=== PATIENT | female | born 1950 | race Caucasian/White ===

== ENCOUNTER 2017-08-09 12:42 | Observation (INO) | payer BC, SELFPAY ==
[2017-08-09] VITALS (9 sets, daily range): BP systolic 157–192; BP diastolic 79–95; PULSE 65–75; RESP 9–19; TEMP 36.1–36.7; O2SAT 98–100; BMI 30.2; BMI 30.4
--- NOTE | 2017-08-09 12:55 | EKG12_ITS ---
Test Reason : DIZZINESS Blood Pressure : / mmHG Vent. Rate : 065 BPM Atrial Rate : 065 BPM P-R Int : 164 ms QRS Dur : 170 ms QT Int : 520 ms P-R-T Axes : 069 068 020 degrees QTc Int : 540 ms Sinus rhythm with frequent Premature ventricular complexes Right bundle branch block Abnormal ECG Confirmed by KARINA PATINO ([id number]), commercial production editor GABRIELLA RYDER ([id number] on 08/22/2017 5:55:40 PM Referred By: KATELYN Confirmed By:KARINA PATINO
--- NOTE | 2017-08-09 12:55 | CT_ITS ---
STUDY: CT BRAIN WITHOUT CONTRAST REASON FOR EXAM: Female, 66 years old. Dizziness. Sudden onset of vomiting. RADIATION DOSAGE (If Supplied By Facility): CTDIvol = ( 44.99 ) mGy, DLP = ( 829.85 ) mGycm TECHNIQUE: Transaxial CT imaging of the brain was performed without administration of intravenous contrast material. Individualized dose optimization techniques were used for this CT. COMPARISON: None. FINDINGS: Normal soft tissue structures. Normal calvarium. Normal size ventricles and extra-axial spaces for the patient's age. Normal white matter tracts of the cerebral hemispheres. Normal basal ganglia and thalami. Normal brainstem. Normal cerebellum. There is no intracranial hemorrhage. There are no findings of an acute ischemic infarction. Atherosclerotic calcification of the cavernous portions of the internal carotid arteries bilaterally. Mucosal thickening of the inferior aspects of both maxillary sinuses. CT/Brain/Head without Contrast IMPRESSION: Mucosal thickening of the maxillary sinuses. No acute intracranial abnormality is seen. Electronically Signed: Javier Amaro MD at 13:43 EDT Tel [phone], Service support ,
--- NOTE | 2017-08-09 12:59 | PCA ---
NO OLD EKG IN MUSE
--- NOTE | 2017-08-09 13:02 | ED.DCSUM_ITS ---
- ER Visit Summary Date of Service: 08/09/17 Chief Complaint: Vertigo History of Present Illness: The patient is a 66 F presenting with sudden onset of vertigo. She states this is worse if she turns her head or stands. She began to have nausea and vomiting associated with this. She denies chest pain or shortness of breath. She has a history of this remotely in the past. She denies headache. Denies numbness or weakness. Denies other complaints. Physical Examination: Vitals are stable. Patient is afebrile. Alert no acute distress. HEENT exam is unremarkable. Neck is supple. Lungs are clear and equal bilaterally. Heart is regular rate and rhythm. Abdomen is soft nontender nondistended. Extremities are unremarkable. Skin is warm and dry. No focal neurologic deficit. Remainder of exam is unremarkable. Emergency Department Course and Treatment: Patient given IV fluids, Zofran, Valium. EKG is sinus rate is 65 with right bundle branch block. CBC, chemistries unremarkable other than potassium 3.0, glucose 179, BUN 19. Troponin is negative. CT head shows no acute process. Patient continues to have vertigo and was given meclizine with no improvement. Will discuss with the hospitalist for observation. Disposition: Observation Impression: Intractable vertigo This note was generated with [employer] dictation software. It may contain incorrect words, spelling, and punctuation that were not noted in review of the chart prior to signing ED Disposition - Plan for ED Patient: Chief Complaint: Dizziness Referrals: NOT,DEFINED [NON-STAFF] -
[2017-08-09] MEDS: 0.9% Normal Saline 1,000 ML 1000 ML IV (13:07)
[2017-08-09] MEDS: Ondansetron 4 MG/2 ML Vial IV ×2 (13:07→23:35)
[2017-08-09] MEDS: diazePAM 5 MG Tablet PO (13:16)
[2017-08-09 13:25] LABS: Absolute Lymphocyte Count 1.98 X10^3/ul (0.83-4.51); Absolute Neutrophil Count 4.7 X10^3/uL (2.0-7.7); Basophil# 0.04 X10^3/uL; Basophil% 0.5 % (0-1); Eosinophil# 0.15 X10^3/uL; Eosinophils% 1.9 % (0-5); Hematocrit 42.5 % (37-47); Hemoglobin 14.5 g/dl (12.0-15.0); Lymphocyte # 1.98 X10^3/ul (4.0); Lymphocyte % 25.7 % (19-41); Mean Corp Hgb Conc 34.1 g/gl (32-36); Mean Corpuscular Volume 87.8 fL (81-99); Mean Platelet Vol. 9.7 fl (6.2-12.0); Monocyte# 0.78 X10^3/uL; Monocyte% 10.1 % (0-10); Neutrophil # 4.73 X10^3/uL (2.7-7.7); Neutrophil % 61.4 % (47-70); Platelet Count 289 K/mm3 (150-450); RBC Distribution Width CV 13.5 % (11.6-14.6); RBC Distribution Width SD 43.3 fl (35.1-43.9); Red Blood Count 4.84 M/mm3 (4.2-5.4); White Blood Count 7.7 K/mm3 (4.4-11.0)
[2017-08-09 13:26] LABS: POSITIVE COUNT NO; POSITIVE DIFFERENTIAL NO; POSITIVE MORPHOLOGY NO
[2017-08-09 13:31] LABS: Anion Gap 15 (5-15); BUN 19 mg/dL (7-18); Calcium,Total 8.8 mg/dL (8.5-10.1); Chloride 108 mmol/L (98-107); Creatinine, Serum 0.95 mg/dL (0.55-1.02); EST Glomerular Filtration Rate 63 mL/min (>60); Est Glom Filt Rate - Afr Amer 76 mL/min (>60); Estimated Creatinine Clearance 45.14 ml/min; Glucose 179 mg/dL (74-106); Sodium Level 143 mmol/L (136-145)
--- NOTE | 2017-08-09 14:15 | ED.RN ---
pt UNABLE TO GET UNDRESSED D/T VERTIGO. SHE HAS NO WIRES OR METAL ON.
[2017-08-09] MEDS: Meclizine HCl 25 MG Tablet PO ×2 (14:35→18:42)
--- NOTE | 2017-08-09 16:18 | PCM.HP.STD ---
Problem List (1) Hypokalemia Status: Acute (2) Vertigo Status: Acute (3) Hypothyroidism Status: Chronic History of Present Illness Date of Admission: 08/09/17 Chief Complaint: Dizziness. The patient is a 66 year old F with past medical history as mentioned above presented to the emergency room because of dizziness. Her symptoms started this morning around 11 AM when she was walking with dizziness, described as spinning sensation and about to fall, persistent, associated with persistent nausea and vomiting, worsening upon eye opening, somewhat relieved when she closes her eyes. She has been throwing up since her symptoms started. She denied headache, vision change, facial numbness or tingling. Denied focal arm or leg weakness. Denied ear pain, ear discharge or change in her hearing. Denies fever chills. Denied chest pain or shortness of breath. In the emergency department, her blood pressure was elevated, other vital signs were stable. Her routine blood work is remarkable for potassium of 3 and blood sugar of 179. Her EKG revealed normal sinus rhythm with right bundle branch block, no acute ischemic changes and no old EKG to compare. Troponin is negative. CT scan brain showed no acute infarction or hemorrhage. She received IV Valium ?2, oral Antivert ?1 as well as IV fluids and antiemetics in the emergency room without significant improvement. She is being admitted for intractable vertigo as well as hypokalemia and elevated blood pressure. Past Medical History Past Medical History (Chronic Problems): Chronic Problems Hypothyroidism (Chronic) Allergies Penicillins [PCN] Allergy (Verified 08/09/17 13:15) Hives Home Medications: Ambulatory Orders Medication Instructions Recorded Levothyroxine Sodium [Synthroid] 150 mcg PO DAILY 08/09/17 Surgical History: hysterectomy, tonsillectomy, - - Thyroidectomy. 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 Lives: Spouse/ Significant Other Smoking Status: Never smoker Alcohol: None Drugs: None - *Family History Maternal History Items: No pertinent history Paternal History Items: No pertinent history Review of Systems Constitutional: Denies: Anorexia, Chills, Fever, Weakness Eyes: Denies: Blurred vision, Double vision, Drainage, Redness HEENT: Denies: Difficulty Hearing, Ear Pain, Eye Pain, Nasal Congestion, Sore Throat Cardiovascular: Denies: Chest Pain, Chest Pressure, Chest Tightness, Heaviness, Palpitations, Syncope Respiratory: Denies: Cough, Pleuritic Pain, Shortness of Breath, Sputum production, Wheezing Gastrointestinal: Reports: Nausea, Vomiting. Denies: Abdominal Pain, Constipation, Diarrhea Genitourinary: Denies: Dysuria, Frequency, Hematuria Musculoskeletal: Denies: Arm Pain, Back Pain, Foot Pain Skin: Denies: Dryness, Rash Neurological: Denies: Balance problems, Change in Speech, Slurred speech, Headaches, Numbness Psychiatric: Denies: Anxiety, Depression Endocrine: Denies: Change in Body Habitus, Polydipsia VTE Information - Inpt Only VTE Present on Admission: No VTE Mechan Device Prophylaxis: None VTE Pharm Prophylaxis ordered?: Yes Patient Problems: Active and Suspected Problems Hypokalemia (Acute) Vertigo (Acute) - Physical Exam General: Alert, Oriented x3, Cooperative, No apparent distress HEENT: Atraumatic, PERRLA, EOMI Oral: Moist Mucosa, No Gingival or Mucosal Lesions/ Ulcerations Neck: Supple, No JVD, Negative Carotid Bruits, Trachea Midline, Thyroid Normal Size and Texture Lungs: Clear to auscultation, No rhonchi, No wheeze, No rales Cardiovascular: Regular rate, Regular Rhythm, Normal S1, Normal S2 Abdomen: Bowel Sounds Present, Soft, Non Tender, Non-Distended, No Hepato-splenomegaly Extremities: No clubbing, No cyanosis, No edema Skin: No rashes, No breakdown Lymphatic: No Cervical, Supraclavicular, or Inguinal Adenopathy Neurological: Cranial nerves II-XII grossly intact, Motor Exam 5/5 strength throughout Psych/Mental Status: Normal Affect, Appropriate, Alert and oriented to time, place, person, mood and affect Vital Signs Temp Pulse Resp BP Pulse Ox 98.1 F 68 9 L 192/94 H 98 08/09/17 15:27 08/09/17 15:27 08/09/17 15:27 08/09/17 15:27 08/09/17 15:27 Oxygen Delivery Method Room Air Weight: 160 lb Body Mass Index (BMI) 30.2 Laboratory Tests Past 24 Hrs 08/09/17 08/09/17 13:05 13:05 WBC 7.7 RBC 4.84 Hgb 14.5 Hct 42.5 MCV 87.8 MCH 30.0 MCHC 34.1 RDW 13.5 RDW Differential 43.3 Plt Count 289 MPV 9.7 Immature Gran % (Auto) 0.400 Neut % (Auto) 61.4 Lymph % (Auto) 25.7 [place] % (Auto) 10.1 H Eos % (Auto) 1.9 Baso % (Auto) 0.5 Absolute Neuts (auto) 4.7 Absolute Lymphs (auto) 1.98 Total Counted Not Reportable Sodium 143 Potassium 3.0 L Chloride 108 H Carbon Dioxide 20.0 L Anion Gap 15 BUN 19 H Creatinine 0.95 Estim Creat Clear Calc 45.14 Est GFR (MDRD) Af Amer 76 Est GFR (MDRD) Non-Af 63 BUN/Creatinine Ratio 20.0 Glucose 179 H Calcium 8.8 Troponin I < 0.015 Clinical Impression(s) from Imaging Studies Brain CT 08/09/17 12:55 IMPRESSION: Mucosal thickening of the maxillary sinuses. No acute intracranial abnormality is seen. Electronically Signed: Javier Amaro MD at 13:43 EDT Tel [phone], Service support , Assessment/Plan Active and Suspected Problems Hypokalemia (Acute) Vertigo (Acute) This is a 66 years old female patient presented to the medicine because of vertigo with intractable nausea and vomiting and she is being admitted because of no improvement with multiple rounds of Valium, Antivert, antiemetics and IV fluids. #1 intractable vertigo: It is probably peripheral vertigo. CT scan brain without acute findings. No focal deficit on physical exam. Blood pressure is elevated. EKG revealed normal sinus rhythm with right bundle branch block, no acute changes. Troponin is negative. [facility], IV fluids with potassium replacement, Antivert as needed, IV Valium as needed, IV antiemetics with Zofran and Phenergan, repeat BMP tomorrow morning, PT evaluation and treatment. #2 hypokalemia: Likely secondary to intractable nausea and vomiting. Plan to replace potassium with IV fluids, repeat BMP tomorrow morning. #3 elevated blood pressure: Her blood pressure is elevated, maximum was 192 systolic. This is likely due to acute stress because of vertigo and intractable nausea and vomiting. She did mention that her blood pressure was high at one point of time but she is not taking any antihypertensive medications. Plan: Monitor blood pressure, start IV hydralazine as needed. #4 hyperglycemia: Blood sugar is 179. She is not diabetic. Will do hemoglobin A1c. #5 hypothyroidism: She has a history of thyroid cancer status post thyroidectomy. Plan to continue levothyroxine. #6 DVT prophylaxis: Subcu Lovenox. This note was generated with [employer] dictation software. It may contain incorrect words, spelling, and punctuation that were not noted in checking the note before signing. Code Visit OBSV E&M: 28167 Initial observation care L3
--- NOTE | 2017-08-09 16:28 | HP.PCM_ITS ---
Problem List (1) Hypokalemia Status: Acute (2) Vertigo Status: Acute (3) Hypothyroidism Status: Chronic History of Present Illness Date of Admission: 08/09/17 Chief Complaint: Dizziness. The patient is a 66 year old F with past medical history as mentioned above presented to the emergency room because of dizziness. Her symptoms started this morning around 11 AM when she was walking with dizziness, described as spinning sensation and about to fall, persistent, associated with persistent nausea and vomiting, worsening upon eye opening, somewhat relieved when she closes her eyes. She has been throwing up since her symptoms started. She denied headache, vision change, facial numbness or tingling. Denied focal arm or leg weakness. Denied ear pain, ear discharge or change in her hearing. Denies fever chills. Denied chest pain or shortness of breath. In the emergency department, her blood pressure was elevated, other vital signs were stable. Her routine blood work is remarkable for potassium of 3 and blood sugar of 179. Her EKG revealed normal sinus rhythm with right bundle branch block, no acute ischemic changes and no old EKG to compare. Troponin is negative. CT scan brain showed no acute infarction or hemorrhage. She received IV Valium ?2, oral Antivert ?1 as well as IV fluids and antiemetics in the emergency room without significant improvement. She is being admitted for intractable vertigo as well as hypokalemia and elevated blood pressure. Past Medical History Past Medical History (Chronic Problems): Chronic Problems Hypothyroidism (Chronic) Allergies Penicillins [PCN] Allergy (Verified 08/09/17 13:15) Hives Home Medications: Ambulatory Orders Medication Instructions Recorded Levothyroxine Sodium [Synthroid] 150 mcg PO DAILY 08/09/17 Surgical History: hysterectomy, tonsillectomy, - - Thyroidectomy. 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 Lives: Spouse/ Significant Other Smoking Status: Never smoker Alcohol: None Drugs: None - *Family History Maternal History Items: No pertinent history Paternal History Items: No pertinent history Review of Systems Constitutional: Denies: Anorexia, Chills, Fever, Weakness Eyes: Denies: Blurred vision, Double vision, Drainage, Redness HEENT: Denies: Difficulty Hearing, Ear Pain, Eye Pain, Nasal Congestion, Sore Throat Cardiovascular: Denies: Chest Pain, Chest Pressure, Chest Tightness, Heaviness, Palpitations, Syncope Respiratory: Denies: Cough, Pleuritic Pain, Shortness of Breath, Sputum production, Wheezing Gastrointestinal: Reports: Nausea, Vomiting. Denies: Abdominal Pain, Constipation, Diarrhea Genitourinary: Denies: Dysuria, Frequency, Hematuria Musculoskeletal: Denies: Arm Pain, Back Pain, Foot Pain Skin: Denies: Dryness, Rash Neurological: Denies: Balance problems, Change in Speech, Slurred speech, Headaches, Numbness Psychiatric: Denies: Anxiety, Depression Endocrine: Denies: Change in Body Habitus, Polydipsia VTE Information - Inpt Only VTE Present on Admission: No VTE Mechan Device Prophylaxis: None VTE Pharm Prophylaxis ordered?: Yes Patient Problems: Active and Suspected Problems Hypokalemia (Acute) Vertigo (Acute) - Physical Exam General: Alert, Oriented x3, Cooperative, No apparent distress HEENT: Atraumatic, PERRLA, EOMI Oral: Moist Mucosa, No Gingival or Mucosal Lesions/ Ulcerations Neck: Supple, No JVD, Negative Carotid Bruits, Trachea Midline, Thyroid Normal Size and Texture Lungs: Clear to auscultation, No rhonchi, No wheeze, No rales Cardiovascular: Regular rate, Regular Rhythm, Normal S1, Normal S2 Abdomen: Bowel Sounds Present, Soft, Non Tender, Non-Distended, No Hepato- splenomegaly Extremities: No clubbing, No cyanosis, No edema Skin: No rashes, No breakdown Lymphatic: No Cervical, Supraclavicular, or Inguinal Adenopathy Neurological: Cranial nerves II-XII grossly intact, Motor Exam 5/5 strength throughout Psych/Mental Status: Normal Affect, Appropriate, Alert and oriented to time, place, person, mood and affect Vital Signs Temp Pulse Resp BP Pulse Ox 98.1 F 68 9 L 192/94 H 98 08/09/17 15:27 08/09/17 15:27 08/09/17 15:27 08/09/17 15:27 08/09/17 15:27 Oxygen Delivery Method Room Air Weight: 160 lb Body Mass Index (BMI) 30.2 Laboratory Tests Past 24 Hrs 08/09/17 08/09/17 13:05 13:05 WBC 7.7 RBC 4.84 Hgb 14.5 Hct 42.5 MCV 87.8 MCH 30.0 MCHC 34.1 RDW 13.5 RDW Differential 43.3 Plt Count 289 MPV 9.7 Immature Gran % (Auto) 0.400 Neut % (Auto) 61.4 Lymph % (Auto) 25.7 [place] % (Auto) 10.1 H Eos % (Auto) 1.9 Baso % (Auto) 0.5 Absolute Neuts (auto) 4.7 Absolute Lymphs (auto) 1.98 Total Counted Not Reportable Sodium 143 Potassium 3.0 L Chloride 108 H Carbon Dioxide 20.0 L Anion Gap 15 BUN 19 H Creatinine 0.95 Estim Creat Clear Calc 45.14 Est GFR (MDRD) Af Amer 76 Est GFR (MDRD) Non-Af 63 BUN/Creatinine Ratio 20.0 Glucose 179 H Calcium 8.8 Troponin I < 0.015 Clinical Impression(s) from Imaging Studies Brain CT 08/09/17 12:55 IMPRESSION: Mucosal thickening of the maxillary sinuses. No acute intracranial abnormality is seen. Electronically Signed: Javier Amaro MD at 13:43 EDT Tel [phone], Service support , Assessment/Plan Active and Suspected Problems Hypokalemia (Acute) Vertigo (Acute) This is a 66 years old female patient presented to the medicine because of vertigo with intractable nausea and vomiting and she is being admitted because of no improvement with multiple rounds of Valium, Antivert, antiemetics and IV fluids. #1 intractable vertigo: It is probably peripheral vertigo. CT scan brain without acute findings. No focal deficit on physical exam. Blood pressure is elevated. EKG revealed normal sinus rhythm with right bundle branch block, no acute changes. Troponin is negative. [facility], IV fluids with potassium replacement, Antivert as needed, IV Valium as needed, IV antiemetics with Zofran and Phenergan, repeat BMP tomorrow morning, PT evaluation and treatment. #2 hypokalemia: Likely secondary to intractable nausea and vomiting. Plan to replace potassium with IV fluids, repeat BMP tomorrow morning. #3 elevated blood pressure: Her blood pressure is elevated, maximum was 192 systolic. This is likely due to acute stress because of vertigo and intractable nausea and vomiting. She did mention that her blood pressure was high at one point of time but she is not taking any antihypertensive medications. Plan: Monitor blood pressure, start IV hydralazine as needed. #4 hyperglycemia: Blood sugar is 179. She is not diabetic. Will do hemoglobin A1c. #5 hypothyroidism: She has a history of thyroid cancer status post thyroidectomy. Plan to continue levothyroxine. #6 DVT prophylaxis: Subcu Lovenox. This note was generated with [employer] dictation software. It may contain incorrect words, spelling, and punctuation that were not noted in checking the note before signing. Code Visit OBSV E&M: 29235 Initial observation care L3
[2017-08-09] MEDS: Enoxaparin 40 MG/0.4 ML Syringe SC (18:46)
[2017-08-09 18:54] LABS: Hemoglobin A1c 5.1 % (4.2-6.3)
[2017-08-09] MEDS: 0.9% NaCl Peripheral Flush Adult/Peds IV (19:55)
[2017-08-10] VITALS (13 sets, daily range): BP systolic 137–188; BP diastolic 64–92; PULSE 71–88; RESP 14–16; TEMP 36.5–37.1; O2SAT 98–100
[2017-08-10] MEDS: Meclizine HCl 25 MG Tablet PO ×2 (02:30→09:49)
--- NOTE | 2017-08-10 02:54 | NURSING ---
lab notified of stat labs
[2017-08-10 03:23] LABS: Magnesium 2.1 mg/dL (1.6-2.6)
[2017-08-10 03:31] LABS: Anion Gap 9 (5-15); BUN 9 mg/dL (7-18); BUN/Creat Ratio 16.9 RATIO (10-20); Calcium,Total 7.8 mg/dL (8.5-10.1); Chloride 112 mmol/L (98-107); Creatinine, Serum 0.53 mg/dL (0.55-1.02); EST Glomerular Filtration Rate 123 mL/min (>60); Est Glom Filt Rate - Afr Amer 149 mL/min (>60); Estimated Creatinine Clearance 80.92 ml/min; Glucose 108 mg/dL (74-106); Potassium 3.8 mmol/L (3.5-5.1); Sodium Level 146 mmol/L (136-145)
[2017-08-10] MEDS: Levothyroxine 150 MCG Tablet PO (05:57)
[2017-08-10] MEDS: Enoxaparin 40 MG/0.4 ML Syringe SC (09:46)
[2017-08-10] MEDS: hydrALAZINE 20 MG/ML Vial 10 MG IV (10:36)
--- NOTE | 2017-08-10 10:59 | MRI_ITS ---
STUDY: MRI BRAIN WITHOUT CONTRAST REASON FOR EXAM: Female, 66 years old. vertigo -- sudden onset vertigo 08/09/17, nausea,vomiting, hx thyroid cancer. TECHNIQUE: Standardized multiplanar fat and water weighted pulse sequences were obtained. COMPARISON: None. FINDINGS: Normal size of the ventricles and extra-axial spaces for the patient's age. There are a limited number of small white matter hyperintensities, distributed throughout the deep white matter tracts of the cerebral hemispheres, consistent with mild chronic white matter ischemic changes. Normal bilateral basal ganglia. Normal thalami. There is no extra-axial fluid accumulation. Normal flow voids within the major intracranial circulation suggesting patency by spin echo criteria. Normal sella turcica, pituitary gland, infundibular stalk, optic chiasm and hypothalamus. Normal tectal plate and pineal gland. Normal midbrain, randy and medulla. Normal cerebellum. Normal basal cisterns. Normal bilateral temporal bones. Normal bilateral internal auditory canals. No demonstrated orbital abnormality, within the constraints of a routine brain study. Normal visualized paranasal sinuses. Normal calvarium and skull base. Normal visualized soft tissue structures. Normal visualized upper cervical spine. MRI/Brain without Contrast IMPRESSION: No acute intracranial abnormality or evidence of masses. Electronically Signed: Rishi Pina MD at 10:02 EDT Tel , Service support ,
--- NOTE | 2017-08-10 11:01 | PCM.PN.HOSP ---
Patient Problems: Active and Suspected Problems Hypokalemia (Acute) Vertigo (Acute) Subjective: CC: Dizziness Objective: Patient reports significant dizziness and nausea but denies any vomiting. she denies any headache, her blood pressure is elevated. Vitals/I&O's: Vital Signs Temp Pulse Resp BP Pulse Ox 98.4 F 78 16 176/92 H 100 08/10/17 09:35 08/10/17 10:36 08/10/17 09:35 08/10/17 09:35 08/10/17 09:35 Oxygen Delivery Method Room Air Weight: 73 kg Body Mass Index (BMI) 30.4 Intake and Output for Last 24 Hours 08/08/17 08/09/17 08/10/17 23:59 23:59 23:59 Intake Total 426 / 426 467 / 467 Output Total 900 / 900 300 / 300 Balance -474 / -474 167 / 167 General: Alert, Oriented x3 HEENT: Atraumatic Oral: Moist Mucosa Neck: Supple Lungs: Clear to auscultation Cardiovascular: Regular rate, Normal S1, Normal S2 Abdomen: Bowel Sounds Present, Soft, Non Tender Laboratory Results 08/10/17 03:00: Sodium 146 H, Potassium 3.8, Chloride 112 H, Carbon Dioxide 25.0, Anion Gap 9, BUN 9, Creatinine 0.53 L, Estim Creat Clear Calc 80.92, Est GFR (MDRD) Af Amer 149, Est GFR (MDRD) Non-Af 123, BUN/Creatinine Ratio 16.9, Glucose 108 H, Calcium 7.8 L 08/10/17 03:00: Magnesium 2.1 Current Medications Enoxaparin Sodium (Lovenox) 40 mg SC DAILY@1000 [facility] Last Admin: 08/10/17 09:46 Dose: 40 mg Hydralazine HCl (Apresoline Iv) 10 mg IV Q8H PRN PRN PRN Reason: for SBP>160 Last Admin: 08/10/17 10:36 Dose: 10 mg Dextrose () 1,000 mls @ 75 mls/hr IV .[id number] [facility] Last Admin: 08/10/17 09:41 Dose: 75 mls/hr Levothyroxine Sodium (Synthroid) 150 mcg PO DAILY@0600 [facility] Last Admin: 08/10/17 05:57 Dose: 150 mcg Magnesium Hydroxide (Milk Of Magnesia) 30 ml PO DAILY PRN PRN PRN Reason: Constipation Meclizine HCl (Antivert) 25 mg PO 4X/DAY PRN PRN PRN Reason: Vertigo Last Admin: 08/10/17 09:49 Dose: 25 mg Ondansetron HCl (Zofran) 4 mg IV Q6H PRN PRN PRN Reason: NAUSEA/VOMITING Last Admin: 08/09/17 23:35 Dose: 4 mg Promethazine HCl (Phenergan) 6.25 mg IV Q6H PRN PRN PRN Reason: NAUSEA/VOMITING Sodium Chloride () 5 - 30 ml IV UD PRN PRN Reason: SALINE FLUSH Last Admin: 08/09/17 19:55 Dose: 10 ml Medical Necessity - Tobacco Use Smoking Status: Never smoker Assessment/Plan Active and Suspected Problems Hypokalemia (Acute) Vertigo (Acute) 1 intractable dizziness; obtain MRI of the brain to rule posterior circulation infarction. 2 hypokalemia; replace as needed. 3. hypertension; will start low dose lisinopril 4. 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 6 DVT prophylaxis: SC Lovenox. Code Visit Inpatient E&M: 15089 Subs Hosp L2 OBSV E&M: 45133 Observ/hosp same date L2
--- NOTE | 2017-08-10 14:04 | CASEMGMT ---
See RN CM Assessment Link. DC Plan: HOME Intro role of CM to patient and her . Plan is to return home, and pt's will assist with care needs. Pt states she was very independent prior to admission, no DME. Sara FRIEDN RN ACM
[2017-08-10] MEDS: 0.9% NaCl Peripheral Flush Adult/Peds IV (15:38)
[2017-08-10] MEDS: Lisinopril 10 MG Tablet PO (15:38)
[2017-08-11] VITALS (7 sets, daily range): BP systolic 140–168; BP diastolic 66–98; PULSE 57–75; RESP 14–16; TEMP 36.6–37.1; O2SAT 97–100
[2017-08-11] MEDS: Levothyroxine 150 MCG Tablet PO (05:11)
[2017-08-11] MEDS: Lisinopril 10 MG Tablet PO (08:59)
[2017-08-11 11:01] LABS: Anion Gap 7 (5-15); BUN 12 mg/dL (7-18); BUN/Creat Ratio 14.5 RATIO (10-20); Calcium,Total 8.8 mg/dL (8.5-10.1); Chloride 109 mmol/L (98-107); Creatinine, Serum 0.83 mg/dL (0.55-1.02); EST Glomerular Filtration Rate 74 mL/min (>60); Est Glom Filt Rate - Afr Amer 89 mL/min (>60); Estimated Creatinine Clearance 51.67 ml/min; Glucose 108 mg/dL (74-106); Potassium 3.1 mmol/L (3.5-5.1); Sodium Level 142 mmol/L (136-145); Thyroid Stim Hormone (TSH) 0.08 uIU/mL (0.358-3.74)
[2017-08-11 11:34] LABS: T4 Free Direct 1.39 ng/dL (0.76-1.46)
--- NOTE | 2017-08-11 11:57 | CASEMGMT ---
Pt and asked to speak w/this SW in regard to insurance. Pt and state pt's insurance switches to [employer] on August 12, which is tomorrow. The pt has not given the [employer] card to the hospital. SW explained that if pt is still here tomorrow, to make sure to give the card to CM or SW to pass on to our financial dept. Pt states she thought today was August 12, she states she lost a day. Pt states she is feeling better, states she is going home today. SW explains if she is going home today, there should be no concerns in regard to the [employer]. Pt and then explain that their policy is an out of state policy. SW explained that this SW does not know how the policy will cover the hospitalization. SW explained when they get the bill there will be a number on the back to call billing w/any questions, SW explained the hope would be that since we take the local [place], that their [place] of [place] would also be accepted here. SW again reiterated however there is no way for this SW to know for certain. SW again encouraged pt and to call billing w/any questions. SW also suggested to to call the insurance company. He states he would rather wait for it to go to billing first and if he needs to follow up, he will do so then. states is not worried about it, since pt is leaving today. No further needs, SW available should any other needs arise. RAMAKRISHNA Miller, GRADES 7 [phone] TUTOR
--- NOTE | 2017-08-11 12:11 | PCM.DC ---
- Discharge Diagnoses Current Active Problems: Current Active and Chronic Problems Hypokalemia (Acute) Vertigo (Acute) Hypothyroidism (Chronic) You will use the following diet at home:: Regular Discharge Activity: Return to Normal Activity Allergies/Adverse Reactions: Allergies Penicillins [PCN] Allergy (Verified 08/09/17 13:15) Hives Medications to take at Discharge Levothyroxine Sodium [Synthroid] 150 mcg PO DAILY 08/09/17 Lisinopril [Zestril] 10 mg PO DAILY #30 tab 08/11/17 Meclizine HCl [Antivert] 25 mg PO 4X/DAY PRN PRN #20 tab 08/11/17 The following prescriptions were given: Lisinopril [Zestril] 10 mg PO DAILY #30 tab Meclizine HCl [Antivert] 25 mg PO 4X/DAY PRN PRN #20 tab PRN Reason: Vertigo Primary Care Physician: NOT,DEFINED [NON-STAFF] - In 1 Week Proposed Discharge Date: 08/11/17
--- NOTE | 2017-08-11 12:12 | PCM.DC.SUM ---
Discharge Date and Diagnosis Date of Admission: 08/09/17 - Primary Discharge Diagnosis Active and Suspected Problems Hypokalemia (Acute) Vertigo (Acute) - Secondary Discharge Diagnosis Chronic Problems Hypothyroidism (Chronic) Hospital Course and Treatment Summary of Care Provided: This is a 66 years old female patient presented to the medicine because of vertigo with intractable nausea and vomiting , CT scan of the head in the emergency room did not show any acute intracranial process and she was admitted because of the fact that she did not have any improvement with multiple rounds of Valium, Antivert, antiemetics and IV fluids. Her blood pressure was estimated to be elevated, MRI of the brain was obtained and did not show any acute findings. she was started on lisinopril for blood pressure control. Her symptoms have now resolved and she was discharged home in stable condition. 1 intractable dizziness; MRI of the brain did not show posterior circulation infarction. 2 hypokalemia; replaced. 3. hypertension; started on lisinopril 4. mild hyperglycemia; A1c is 5.1 5 surgically induced hypothyroidism; TSH is diminished but she has a normal free T4 and we will continue on Synthroid. Discharge Activity: Return to Normal Activity Home Medications: Medications to take at Discharge Levothyroxine Sodium [Synthroid] 150 mcg PO DAILY 08/09/17 Lisinopril [Zestril] 10 mg PO DAILY #30 tab 08/11/17 Meclizine HCl [Antivert] 25 mg PO 4X/DAY PRN PRN #20 tab 08/11/17 Following Prescrptions Were Given to Patient: Lisinopril [Zestril] 10 mg PO DAILY #30 tab Meclizine HCl [Antivert] 25 mg PO 4X/DAY PRN PRN #20 tab PRN Reason: Vertigo Primary Care Physician: NOT,DEFINED [NON-STAFF] - In 1 Week Medical Necessity - Tobacco Use Smoking Status: Never smoker Meaningful Use Info Meaningful Use Diagnoses (Choose all that apply): None applicable Code Visit OBSV E&M: 31859 Observation care discharge
== END 2017-08-11 13:35 | disposition home or self-care (01) ==
LOC: ED 15:34 → MS2 16:27
PROVIDERS: Internal Medicine; Admitting Provider Hospitalist; Emergency Provider Emergency Medicine; Family Provider Family Medicine; PCP Family Medicine; Visit Provider Internal Medicine
DX: E87.6 Hypokalemia (principal); R42 Dizziness and giddiness; Z79.899 Other long term (current) drug therapy; I10 Essential (primary) hypertension; E89.0 Postprocedural hypothyroidism; R73.9 Hyperglycemia, unspecified; I45.10 Unspecified right bundle-branch block; Z85.850 Personal history of malignant neoplasm of thyroid; R11.2 Nausea with vomiting, unspecified
CPT/HCPCS: 36415; 70450; 70551; 80048; 83036; 83735; 84439; 84443; 84484; 85025; 93005; 96361; 96372; 96374; 96375; 96376; 99218; 99284; J7030; A4216; G0378; J2405

== ENCOUNTER → 2017-08-16 15:45 | Outpatient (CLI) | payer MEDICARE, SELFPAY ==
--- NOTE | 2017-08-16 15:45 | DT_ITS ---
This patient was seen during an EMR downtime August 15, 2017 - August 22, 2017. This patient may have a combination of paper and electronic documentation or all paper documentation. All documentation is viewable within the e-chart portion of [facility] for each patient visit.
[2017-08-21 08:35] LABS: Anion Gap 5 (5-15); BUN 20 mg/dL (7-18); BUN/Creat Ratio 25.3 RATIO (10-20); Calcium,Total 8.6 mg/dL (8.5-10.1); Chloride 111 mmol/L (98-107); Creatinine, Serum 0.79 mg/dL (0.55-1.02); EST Glomerular Filtration Rate 78 mL/min (>60); Est Glom Filt Rate - Afr Amer 95 mL/min (>60); Glucose 95 mg/dL (74-106); Potassium 3.8 mmol/L (3.5-5.1); Sodium Level 144 mmol/L (136-145)
== END ==
LOC: MTLAB 08-20 08:26 → MFPLAB 08-20 17:07
PROVIDERS: Family Provider Family Medicine; PCP Family Medicine; Visit Provider Family Medicine
DX: E87.6 Hypokalemia (principal); Z85.850 Personal history of malignant neoplasm of thyroid
CPT/HCPCS: 36415; 80048; 86800

== ENCOUNTER → 2017-08-23 07:48 | Outpatient (CLI) | payer MEDICARE, SELFPAY ==
--- NOTE | 2017-08-23 07:52 | US_ITS ---
STUDY: THYROID ULTRASOUND REASON FOR EXAM: Female, 66 years old. History of thyroid cancer. TECHNIQUE: Ultrasound evaluation of the thyroid was performed with real-time and static mason-scale imaging. COMPARISON: None. FINDINGS: RIGHT LOBE: The right lobe of the thyroid gland is surgically absent. LEFT LOBE: The left lobe of the thyroid gland measures 13 x 8 x 2 mm cm. There is a heterogeneous echotexture. There are no demonstrated solid, cystic or complex lesions. ISTHMUS: The isthmus is surgically absent. The regional lymph nodes are normal. US/Thyroid IMPRESSION: Post thyroidectomy, a small fragment of the left thyroid lobe remains. No demonstrated thyroid mass or regional adenopathy. Electronically Signed: Benjamin Parisi MD at 15:52 EDT , Service support ,
== END ==
PROVIDERS: Family Provider Family Medicine; PCP Family Medicine; Visit Provider Family Medicine
DX: Z85.850 Personal history of malignant neoplasm of thyroid (principal)
CPT/HCPCS: 76536

== ENCOUNTER → 2017-10-12 10:33 | Outpatient (CLI) | payer MEDICARE, SELFPAY ==
--- NOTE | 2017-10-12 10:41 | ECHOD_ITS ---
Reason For Study: MURMUR Procedure This was a 2D Doppler, Color Flow transthoracic echocardiogram. Exam performed in department. Left Ventricle Normal size and thickness. The estimated ejection fraction is 65 %. No regional wall motion abnormalities noted. Right Ventricle Normal size and thickness. Normal systolic function. Atria The left atrium is mildly enlarged. Normal right atrium. Normal atrial septum. Mitral Valve Mild diffuse mitral valve thickening. Trivial mitral valve insufficiency. Tricuspid Valve Normal tricuspid valve. Trivial tricuspid valve insufficiency. Right ventricular systolic pressure estimated to be 30 mmHg. Aortic Valve Trisinus/trileaflet aortic valve. Pulmonic Valve Normal pulmonic valve. Great Vessels Normal aortic root. Normal arch. Normal inferior vena cava. Inferior vena cava collapse with sniff. Pericardium/Pleural No pericardial effusion. MMode/2D Measurements & Calculations LVIDd: 4.4 cm IVSd: 0.96 cm Ao root diam: 2.8 cm LVIDs: 2.8 cm LVPWd: 0.95 cm LA dimension: 3.4 cm RVDd: 3.0 cm FS: 36.7 % LAV(MOD-bp): 78.7 ml LA A4 area: 22.8 cm2 RA A4 area: 12.6 cm2 LAV(MOD-bp) Indexed: 46.1 ml/m2 LAV(MOD-sp2): 74.1 ml LAV(MOD-sp4): 74.5 ml Doppler Measurements & Calculations MV E max scott: 63.7 cm/sec Lat Peak E' Scott: 11.3 cm/sec Med Peak E' Scott: 7.6 cm/sec MV A max scott: 102.1 cm/sec E/E' lat: 5.6 E/E' med: 8.3 MV E/A: 0.62 Ao V2 max: 177.6 cm/sec LV V1 max: 103.3 cm/sec PA V2 max: 82.1 cm/sec Ao max P.1 mmHg LV V1 max P.3 mmHg TR max scott: 225.1 cm/sec TR max P.3 mmHg Interpretation Summary The estimated ejection fraction is 65 %. The left atrium is mildly enlarged. Trivial mitral valve insufficiency. Trivial tricuspid valve insufficiency. Right ventricular systolic pressure estimated to be 30 mmHg. There is no comparison study available. Ordering Physician: Darek Simmons Referring Physician: Darek Simmons Performed By: Dorina Arzate, ENMANUEL, RVT
== END ==
PROVIDERS: Family Provider Family Medicine; PCP Family Medicine; Visit Provider Family Medicine
DX: R01.1 Cardiac murmur, unspecified (principal)
CPT/HCPCS: 93306

== ENCOUNTER → 2018-01-24 10:03 | Outpatient (CLI) | payer MEDICARE, SELFPAY ==
[2018-01-24 10:07] LABS: Bacteria 0 SEEN /hpf (None Seen); Mucous, Urine 0 SEEN /hpf (<or=2+); Red Blood Cells-Urine 0 SEEN /hpf (0-5); White Blood Cells 0 SEEN /hpf (0-5)
[2018-01-24 12:00] LABS: Absolute Lymphocyte Count 1.09 X10^3/ul (0.83-4.51); Absolute Neutrophil Count 3.4 X10^3/uL (2.0-7.7); Basophil# 0.03 X10^3/uL; Basophil% 0.6 % (0-1); Eosinophil# 0.15 X10^3/uL; Eosinophils% 2.8 % (0-5); Hematocrit 41.2 % (37-47); Hemoglobin 13.3 g/dl (12.0-15.0); Lymphocyte # 1.09 X10^3/ul (4.0); Lymphocyte % 20.4 % (19-41); Mean Corp Hgb Conc 32.3 g/gl (32-36); Mean Corpuscular Hgb 29.4 pg (27.0-32.0); Mean Corpuscular Volume 90.9 fL (81-99); Mean Platelet Vol. 10.2 fl (6.2-12.0); Monocyte# 0.67 X10^3/uL; Monocyte% 12.5 % (0-10); Neutrophil # 3.41 X10^3/uL (2.7-7.7); Neutrophil % 63.7 % (47-70); Platelet Count 223 K/mm3 (150-450); RBC Distribution Width CV 14.1 % (11.6-14.6); RBC Distribution Width SD 46.5 fl (35.1-43.9); Red Blood Count 4.53 M/mm3 (4.2-5.4); White Blood Count 5.4 K/mm3 (4.4-11.0)
[2018-01-24 12:03] LABS: Color, Urine Yellow (Yellow); Glucose, Dipstick Normal (Normal); Ketone-Dipstick Negative (Negative); Leukocyte Esterase-Dipstick 25 /ul (Negative); Nitrite-Dipstick Negative (Negative); Occult Blood-Urine Negative /ul (Negative); Protein-Dipstick Negative (Negative); Specific Gravity, Urine 1.015 (1.002-1.030); Urine Bilirubin Dipstick Negative (Negative); Urine Clarity Clear (Clear); Urine Urobilinogen Normal (Normal)
[2018-01-24 12:06] LABS: POSITIVE COUNT NO; POSITIVE DIFFERENTIAL NO; POSITIVE MORPHOLOGY NO
[2018-01-24 12:31] LABS: ALB/GLOB Ratio 1.3 RATIO (0.9-2.4); AST(SGOT) 14 U/L (15-37); Alanine Aminotransfer ALT/SGPT 28 U/L (13-56); Albumin, Serum 3.6 g/dL (3.2-5.0); Alkaline Phosphatase 57 U/L (45-117); Anion Gap 10 (5-15); BUN 20 mg/dL (7-18); BUN/Creat Ratio 25.4 RATIO (10-20); Calcium,Total 8.6 mg/dL (8.5-10.1); Chloride 108 mmol/L (98-107); Creatinine, Serum 0.79 mg/dL (0.55-1.02); EST Glomerular Filtration Rate 78 mL/min (>60); Est Glom Filt Rate - Afr Amer 94 mL/min (>60); Globulin 2.7 g/dL (2.2-4.2); Glucose 85 mg/dL (74-106); Potassium 3.6 mmol/L (3.5-5.1); Protein, Total 6.3 g/dL (6.4-8.2); Sodium Level 143 mmol/L (136-145); T4 Free Direct 1.41 ng/dL (0.76-1.46); Thyroid Stim Hormone (TSH) 0.04 uIU/mL (0.358-3.74)
[2018-01-24 12:36] LABS: Squamous Epithelial Cells - UA 0-5 SEEN /hpf (5-10)
== END ==
PROVIDERS: Family Provider Family Medicine; PCP Family Medicine; Visit Provider Family Medicine
DX: I10 Essential (primary) hypertension (principal)
CPT/HCPCS: 36415; 80053; 81001; 84439; 84443; 85025

== ENCOUNTER → 2018-07-18 14:55 | Outpatient (CLI) | payer MEDICARE, SELFPAY ==
[2017-08-09 17:20] VITALS: BMI 30.4
[2018-07-18 17:42] LABS: Basophil# 0.06 X10^3/uL; Basophil% 0.9 % (0-1); Eosinophil# 0.16 X10^3/uL; Eosinophils% 2.5 % (0-5); Hematocrit 41.8 % (37-47); Hemoglobin 13.9 g/dl (12.0-15.0); Lymphocyte % 22.1 % (19-41); Mean Corp Hgb Conc 33.3 g/gl (32-36); Mean Corpuscular Hgb 28.8 pg (27.0-32.0); Mean Corpuscular Volume 86.7 fL (81-99); Mean Platelet Vol. 9.9 fl (6.2-12.0); Monocyte# 0.72 X10^3/uL; Monocyte% 11.4 % (0-10); Neutrophil # 3.99 X10^3/uL (2.7-7.7); Neutrophil % 62.9 % (47-70); Platelet Count 269 K/mm3 (150-450); RBC Distribution Width CV 14.1 % (11.6-14.6); RBC Distribution Width SD 43.7 fl (35.1-43.9); Red Blood Count 4.82 M/mm3 (4.2-5.4); White Blood Count 6.3 K/mm3 (4.4-11.0)
[2018-07-18 17:46] LABS: POSITIVE COUNT NO; POSITIVE DIFFERENTIAL NO; POSITIVE MORPHOLOGY NO
[2018-07-18 17:59] LABS: ALB/GLOB Ratio 1.3 RATIO (0.9-2.4); AST(SGOT) 15 U/L (15-37); Alanine Aminotransfer ALT/SGPT 30 U/L (13-56); Albumin, Serum 3.7 g/dL (3.2-5.0); Alkaline Phosphatase 61 U/L (45-117); Anion Gap 9 (5-15); BUN 17 mg/dL (7-18); BUN/Creat Ratio 17.8 RATIO (10-20); Calcium,Total 8.5 mg/dL (8.5-10.1); Chloride 109 mmol/L (98-107); Creatinine, Serum 0.96 mg/dL (0.55-1.02); EST Glomerular Filtration Rate 62 mL/min (>60); Est Glom Filt Rate - Afr Amer 75 mL/min (>60); Globulin 2.9 g/dL (2.2-4.2); Glucose 100 mg/dL (74-106); Potassium 3.6 mmol/L (3.5-5.1); Protein, Total 6.6 g/dL (6.4-8.2); Sodium Level 146 mmol/L (136-145); T4 Free Direct 1.14 ng/dL (0.76-1.46); Thyroid Stim Hormone (TSH) 0.08 uIU/mL (0.358-3.74)
[2018-07-21 11:41] LABS: Anti-Thyroglobulin AB < 1.0 IU/mL (0.0-0.9); Thyroglobulin, Serum Qt. 0.1 ng/mL (1.5-38.5)
== END ==
PROVIDERS: Family Provider Family Medicine; PCP Family Medicine; Referring Provider Family Medicine; Visit Provider Family Medicine
DX: I10 Essential (primary) hypertension (principal); E03.9 Hypothyroidism, unspecified
CPT/HCPCS: 36415; 80053; 84432; 84439; 84443; 85025; 86800

== ENCOUNTER → 2018-09-07 09:10 | Outpatient (CLI) | payer MEDICARE, SELFPAY ==
--- NOTE | 2018-09-07 09:14 | BI_ITS ---
MAMMOGRAPHY - BILATERAL SCREENING REASON FOR EXAM: Female, 68 years old. Routine annual screening examination. PERTINENT HISTORY: Non-contributory. TECHNIQUE: Digital bilateral breast dario (3D mammographic acquisition) in the CC and MLO projections. 2-D mediolateral oblique (MLO) and craniocaudad (CC) views of both breasts were obtained. CAD: Full Field Digital Mammography with Computer Added Detection was performed. COMPARISON: Comparison is made with prior outside examination dated March 04, 2015. FINDINGS: Breast Composition: The breasts are heterogeneously dense, which may obscure small masses. There are no dominant masses or suspicious calcifications. No other significant abnormalities are identified. There has been no significant change since the prior study. BI/SCREEN MAMM (CAD) W/DARIO BILAT IMPRESSION: Stable bilateral screening mammogram. Yearly follow-up mammogram recommended. (A) ASSESSMENT CATEGORY: BIRADS Category 1: Negative. A letter regarding these results will be sent to the patient by the facility within 30 days. Approximately 10% of breast cancers are not detected by mammography. A normal mammogram should not delay biopsy of a clinically suspicious abnormality. [id number] Electronically Signed: Javier Amaro, at 9:23 EDT , Service support ,
== END ==
PROVIDERS: Family Provider Family Medicine; PCP Family Medicine; Referring Provider Family Medicine; Visit Provider Family Medicine
DX: Z12.31 Encounter for screening mammogram for malignant neoplasm of breast (principal); Z78.0 Asymptomatic menopausal state
CPT/HCPCS: 77063; 77067

== ENCOUNTER → 2018-09-12 13:49 | Outpatient (CLI) | payer MEDICARE, SELFPAY ==
--- NOTE | 2018-09-12 13:51 | BD_ITS ---
STUDY: DUAL ENERGY X-RAY ABSORPTIOMETRY / DXA REASON FOR EXAM: Female, 68 years old. The patient is postmenopausal. Loss of height. TECHNIQUE: Bone Mineral Density (BMD) measurements of lumbar spine and bilateral hips were obtained. COMPARISON: None. FINDINGS: Lumbar Spine (L1-L4): g/cm2 (0.964) / T-score (-1.7) / Z-score (-0.1) Findings are suggestive of osteopenia with a moderate fracture risk. Increased thoracic kyphosis. Left Femur Total: g/cm2 (0.879) / T-score (-1.0) / Z-score (0.2) Left Femoral Neck: g/cm2 (0.845) / T-score (-1.4) / Z-score (0.1) Right Femur Total: g/cm2 (0.951) / T-score (-0.5) / Z-score (0.8) Right Femoral Neck: g/cm2 (0.894) / T-score (-1.0) / Z-score (0.5) BD/Dexa Bone Density Study IMPRESSION: The patient is considered osteopenic as outlined below according to World Garcia Organization (WHO) criteria with a moderate fracture risk. Reference Information: The T-score is the number of standard deviations above or below the standard which is normal for young adults at their peak bone mineral density. The World Health Organization (WHO) interprets the T-scores as follows: Above -1 Normal bone density Between -1 and -2.5 Osteopenia Equal to / or below -2.5 Osteoporosis As a practical clinical guideline, osteopenia may be graded as follows: Mild -1 through -1.5 Moderate -1.6 through -2.0 Severe -2.1 through -2.4 The Z-score is the number of standard deviations above or below age-matched controls. A Z-score of less than -1.5 would be considered abnormal. References: 1. NIH Osteoporosis and Related Bone Diseases http://www.osteo.org 2. International Society for Clinical Densitometry http://www.iscd.org 3. National Osteoporosis Foundation http://www.nof.org Electronically Signed: Javier Amaro, at 15:50 EDT , Service support ,
== END ==
PROVIDERS: Family Provider Family Medicine; PCP Family Medicine; Referring Provider Family Medicine; Visit Provider Family Medicine
DX: Z78.0 Asymptomatic menopausal state (principal)
CPT/HCPCS: 77080

== ENCOUNTER → 2019-03-19 12:38 | Outpatient (CLI) | payer MEDICARE, SELFPAY ==
[2017-08-09 17:20] VITALS: BMI 30.4
[2019-03-19 13:53] LABS: Absolute Lymphocyte Count 0.69 X10^3/uL (0.83-4.51); Absolute Neutrophil Count 3.6 X10^3/uL (2.0-7.7); Basophil# 0.05 X10^3/uL; Eosinophil# 0.17 X10^3/uL; Eosinophils% 3.3 % (0-5); Hematocrit 41.7 % (37-47); Hemoglobin 13.5 g/dL (12.0-15.0); Lymphocyte # 0.69 X10^3/ul (4.0); Lymphocyte % 13.6 % (19-41); Mean Corp Hgb Conc 32.4 g/dL (32-36); Mean Corpuscular Hgb 28.8 pg (27.0-32.0); Mean Corpuscular Volume 88.9 fL (81-99); Mean Platelet Vol. 9.6 fl (6.2-12.0); Monocyte# 0.57 X10^3/uL; Monocyte% 11.2 % (0-10); NRBC Flagged by Analyzer 0 % (0-5); Neutrophil % 70.7 % (47-70); Platelet Count 247 K/mm3 (150-450); RBC Distribution Width CV 14.5 % (11.6-14.6); RBC Distribution Width SD 46.6 fl (35.1-43.9); Red Blood Count 4.69 M/mm3 (4.2-5.4); White Blood Count 5.1 K/mm3 (4.4-11.0)
[2019-03-19 14:27] LABS: ALB/GLOB Ratio 1.3 RATIO (0.9-2.4); AST(SGOT) 33 U/L (15-37); Alanine Aminotransfer ALT/SGPT 64 U/L (13-56); Albumin, Serum 3.9 g/dL (3.2-5.0); Alkaline Phosphatase 82 U/L (45-117); Anion Gap 4 (5-15); BUN 17 mg/dL (7-18); BUN/Creat Ratio 20.1 RATIO (10-20); Calcium,Total 8.7 mg/dL (8.5-10.1); Chloride 109 mmol/L (98-107); Creatinine, Serum 0.84 mg/dL (0.55-1.02); EST Glomerular Filtration Rate 72 mL/min (>60); Est Glom Filt Rate - Afr Amer 87 mL/min (>60); Globulin 3.1 g/dL (2.2-4.2); Glucose 86 mg/dL (74-106); Potassium 3.7 mmol/L (3.5-5.1); Sodium Level 140 mmol/L (136-145); Thyroid Stim Hormone (TSH) 2.45 uIU/mL (0.358-3.74)
[2019-03-21 11:39] LABS: Anti-Thyroglobulin AB < 1.0 IU/mL (0.0-0.9); Thyroglobulin, Serum Qt. 0.3 ng/mL (1.5-38.5)
== END ==
PROVIDERS: Family Provider Family Medicine; PCP Family Medicine; Visit Provider Family Medicine
DX: I10 Essential (primary) hypertension (principal); Z85.850 Personal history of malignant neoplasm of thyroid
CPT/HCPCS: 36415; 80053; 84432; 84439; 84443; 85025; 86800

== ENCOUNTER 2020-01-01 09:24 | Outpatient (RCR) | payer SELFPAY | END 2020-01-12 23:59 | LOC: NS 09:24 | PROVIDERS: PCP Family Medicine; Visit Provider Family Medicine | DX: Z71.3 Dietary counseling and surveillance (principal); E66.9 Obesity, unspecified; Z68.31 Body mass index [BMI] 31.0-31.9, adult | CPT/HCPCS: 97802 ==

== ENCOUNTER 2020-02-04 15:00 | Outpatient (RCR) | payer SELFPAY ==
[2017-08-09 17:20] VITALS: BMI 30.4
== END 2020-02-11 23:59 ==
LOC: NS 15:00
PROVIDERS: PCP Family Medicine; Visit Provider Family Medicine
DX: Z71.3 Dietary counseling and surveillance (principal); E66.9 Obesity, unspecified; Z68.31 Body mass index [BMI] 31.0-31.9, adult
CPT/HCPCS: 97802; 97803

== ENCOUNTER 2020-03-24 10:51 | Outpatient (RCR) | payer SELFPAY ==
[2017-08-09 17:20] VITALS: BMI 30.4
== END 2020-04-13 23:59 ==
LOC: NS 10:51
PROVIDERS: PCP Family Medicine; Visit Provider Family Medicine
DX: Z71.3 Dietary counseling and surveillance (principal); E66.9 Obesity, unspecified; Z68.31 Body mass index [BMI] 31.0-31.9, adult
CPT/HCPCS: 97803

== ENCOUNTER 2020-05-05 11:00 | Outpatient (RCR) | payer SELFPAY ==
[2017-08-09 17:20] VITALS: BMI 30.4
== END 2020-05-05 23:59 | disposition home or self-care (01) ==
LOC: NS 11:00
PROVIDERS: PCP Family Medicine; Visit Provider Family Medicine
DX: Z71.3 Dietary counseling and surveillance (principal); E66.9 Obesity, unspecified; Z68.31 Body mass index [BMI] 31.0-31.9, adult
CPT/HCPCS: 97803

== ENCOUNTER → 2020-05-26 08:38 | Outpatient (CLI) | payer MEDICARE, SELFPAY ==
[2017-08-09 17:20] VITALS: BMI 30.4
[2020-05-26 09:58] LABS: Absolute Lymphocyte Count 1.05 X10^3/uL (0.83-4.51); Absolute Neutrophil Count 2.9 X10^3/uL (2.0-7.7); Basophil# 0.07 X10^3/uL; Basophil% 1.5 % (0-1); Eosinophil# 0.15 X10^3/uL; Eosinophils% 3.1 % (0-5); Hematocrit 41.9 % (37-47); Hemoglobin 13.3 g/dL (12.0-15.0); Lymphocyte # 1.05 X10^3/ul (4.0); Mean Corp Hgb Conc 31.7 g/dL (32-36); Mean Corpuscular Hgb 28.9 pg (27.0-32.0); Mean Corpuscular Volume 91.1 fL (81-99); Monocyte# 0.65 X10^3/uL; Monocyte% 13.6 % (0-10); NRBC Flagged by Analyzer 0 % (0-5); Neutrophil # 2.85 X10^3/uL (2.7-7.7); Neutrophil % 59.6 % (47-70); Platelet Count 246 K/mm3 (150-450); RBC Distribution Width CV 14.1 % (11.6-14.6); RBC Distribution Width SD 46.8 fl (35.1-43.9); White Blood Count 4.8 K/mm3 (4.4-11.0)
[2020-05-26 10:36] LABS: Creatinine, Urine (random) < 13.00 mg/dL (NO RANGE EST.); Microalbumin,Random Urine 5.5 mg/L (NO RANGE EST.)
[2020-05-26 10:45] LABS: ALB/GLOB Ratio 1.2 RATIO (0.9-2.4); AST(SGOT) 17 U/L (15-37); Alanine Aminotransfer ALT/SGPT 29 U/L (13-56); Albumin, Serum 3.5 g/dL (3.2-5.0); Alkaline Phosphatase 55 U/L (45-117); Anion Gap 6 (5-15); BUN 18 mg/dL (7-18); BUN/Creat Ratio 23.7 RATIO (10-20); Chloride 111 mmol/L (98-107); Creatinine, Serum 0.76 mg/dL (0.55-1.02); EST Glomerular Filtration Rate 81 mL/min (>60); Est Glom Filt Rate - Afr Amer 98 mL/min (>60); Glucose 85 mg/dL (74-106); Potassium 3.8 mmol/L (3.5-5.1); Protein, Total 6.5 g/dL (6.4-8.2); Sodium Level 143 mmol/L (136-145); T4 Free Direct 1.22 ng/dL (0.76-1.46)
[2020-05-27 20:41] LABS: Anti-Thyroglobulin AB < 1.0 IU/mL (0.0-0.9); Thyroglobulin, Serum Qt. 0.2 ng/mL (1.5-38.5)
== END ==
PROVIDERS: PCP Family Medicine; Visit Provider Family Medicine
DX: I10 Essential (primary) hypertension (principal); E03.9 Hypothyroidism, unspecified; Z85.850 Personal history of malignant neoplasm of thyroid
CPT/HCPCS: 36415; 80053; 82043; 82570; 84432; 84439; 84443; 85025; 86800

== ENCOUNTER → 2021-08-20 | Outpatient (CLI) | payer MEDICARE, SELFPAY ==
[2021-08-20 09:16] LABS: Bacteria 0 SEEN /hpf (None Seen); Mucous, Urine 0 SEEN /hpf (<or=2+); Red Blood Cells-Urine 0 SEEN /hpf (0-5); Squamous Epithelial Cells - UA 0 SEEN /hpf (5-10)
[2021-08-20 10:20] LABS: Absolute Lymphocyte Count 0.94 X10^3/uL (0.83-4.51); Absolute Neutrophil Count 3.9 X10^3/uL (2.0-7.7); Basophil# 0.06 X10^3/uL; Basophil% 1.1 % (0-1); Eosinophil# 0.11 X10^3/uL; Hematocrit 40.7 % (37-47); Hemoglobin 13.2 g/dL (12.0-15.0); Lymphocyte # 0.94 X10^3/ul (0.83-4.51); Mean Corp Hgb Conc 32.4 g/dL (32-36); Mean Corpuscular Hgb 29.4 pg (27.0-32.0); Mean Corpuscular Volume 90.6 fL (81-99); Mean Platelet Vol. 9.6 fl (6.2-12.0); Monocyte# 0.46 X10^3/uL; Monocyte% 8.3 % (0-10); NRBC Flagged by Analyzer 0 % (0-5); Neutrophil # 3.93 X10^3/uL (2.7-7.7); Neutrophil % 71.2 % (47-70); Platelet Count 265 K/mm3 (150-450); RBC Distribution Width CV 14.2 % (11.6-14.6); RBC Distribution Width SD 47.3 fl (35.1-43.9); Red Blood Count 4.49 M/mm3 (4.2-5.4); White Blood Count 5.5 K/mm3 (4.4-11.0)
[2021-08-20 10:25] LABS: Color, Urine Yellow (Yellow); Glucose, Dipstick Normal (Normal); Ketone-Dipstick 5 mg/dl (Negative); Leukocyte Esterase-Dipstick 25 /ul (Negative); Nitrite-Dipstick Negative (Negative); Occult Blood-Urine Negative /ul (Negative); Protein-Dipstick Negative (Negative); Specific Gravity, Urine 1.015 (1.002-1.030); Urine Bilirubin Dipstick Negative (Negative); Urine Clarity Sl. Cloudy (Clear); Urine Urobilinogen Normal (Normal); Urine pH 6.5 (5.0 - 8.0)
[2021-08-20 10:34] LABS: White Blood Cells 0-5 SEEN /hpf (0-5)
[2021-08-20 10:53] LABS: ALB/GLOB Ratio 1.3 RATIO (0.9-2.4); AST(SGOT) 10 U/L (15-37); Alanine Aminotransfer ALT/SGPT 23 U/L (13-56); Albumin, Serum 3.7 g/dL (3.2-5.0); Alkaline Phosphatase 48 U/L (45-117); Anion Gap 4 (5-15); BUN 17 mg/dL (7-18); BUN/Creat Ratio 21.4 RATIO (10-20); Calcium,Total 8.8 mg/dL (8.5-10.1); Chloride 109 mmol/L (98-107); Cholesterol 236 mg/dL (200); Creatinine, Serum 0.79 mg/dL (0.55-1.02); EST Glomerular Filtration Rate 76 mL/min (>60); Est Glom Filt Rate - Afr Amer 92 mL/min (>60); Globulin 2.8 g/dL (2.2-4.2); Glucose 100 mg/dL (74-106); High Density Lipoprotein 64 mg/dL; Potassium 3.9 mmol/L (3.5-5.1); Protein, Total 6.5 g/dL (6.4-8.2); Sodium Level 141 mmol/L (136-145); T4 Free Direct 1.37 ng/dL (0.76-1.46); Thyroid Stim Hormone (TSH) 0.04 uIU/mL (0.358-3.74); Triglycerides 69 mg/dL; Very Low Density Lipoprotein 14 mg/dL (5-40)
[2021-08-20 11:03] LABS: Vitamin D,25 Hydroxy 48.9 ng/mL
== END | disposition home or self-care (01) ==
LOC: MFPLAB 09:12
PROVIDERS: PCP Family Medicine; Referring Provider Family Medicine; Visit Provider Family Medicine
DX: M85.80 Other specified disorders of bone density and structure, unspecified site (principal); I10 Essential (primary) hypertension; E03.9 Hypothyroidism, unspecified
CPT/HCPCS: 36415; 80053; 80061; 81001; 82306; 84439; 84443; 85025

== ENCOUNTER → 2022-02-19 | Outpatient (CLI) | payer MEDICARE, SELFPAY ==
[2022-02-19 15:15] LABS: Absolute Neutrophil Count 3.5 X10^3/uL (2.0-7.7); Basophil# 0.04 X10^3/uL; Basophil% 0.8 % (0-1); Eosinophil# 0.06 X10^3/uL; Eosinophils% 1.1 % (0-5); Hemoglobin 13.4 g/dL (12.0-15.0); Lymphocyte % 22.6 % (19-41); Mean Corp Hgb Conc 31.9 g/dL (32-36); Mean Corpuscular Hgb 28.9 pg (27.0-32.0); Mean Corpuscular Volume 90.7 fL (81-99); Mean Platelet Vol. 10.3 fl (6.2-12.0); Monocyte# 0.49 X10^3/uL; Monocyte% 9.2 % (0-10); NRBC Flagged by Analyzer 0 % (0-5); Neutrophil # 3.51 X10^3/uL (2.7-7.7); Neutrophil % 66.1 % (47-70); Platelet Count 254 K/mm3 (150-450); RBC Distribution Width CV 13.9 % (11.6-14.6); RBC Distribution Width SD 46.3 fl (35.1-43.9); Red Blood Count 4.63 M/mm3 (4.2-5.4); White Blood Count 5.3 K/mm3 (4.4-11.0)
[2022-02-19 15:32] LABS: Vitamin D,25 Hydroxy 38.8 ng/mL
[2022-02-19 15:47] LABS: ALB/GLOB Ratio 1.7 RATIO (0.9-2.4); AST(SGOT) 11 U/L (15-37); Alanine Aminotransfer ALT/SGPT 25 U/L (13-56); Albumin, Serum 4.1 g/dL (3.2-5.0); Alkaline Phosphatase 45 U/L (45-117); Anion Gap 9 (5-15); BUN 21 mg/dL (7-18); BUN/Creat Ratio 28.2 RATIO (10-20); Calcium,Total 9.1 mg/dL (8.5-10.1); Chloride 108 mmol/L (98-107); Cholesterol 177 mg/dL (200); Creatinine, Serum 0.75 mg/dL (0.55-1.02); EST Glomerular Filtration Rate 82 mL/min (>60); Est Glom Filt Rate - Afr Amer 99 mL/min (>60); Globulin 2.4 g/dL (2.2-4.2); Glucose 100 mg/dL (74-106); High Density Lipoprotein 77 mg/dL; Potassium 3.9 mmol/L (3.5-5.1); Protein, Total 6.5 g/dL (6.4-8.2); Sodium Level 142 mmol/L (136-145); T4 Free Direct 1.55 ng/dL (0.76-1.46); Thyroid Stim Hormone (TSH) 0.04 uIU/mL (0.358-3.74); Triglycerides 56 mg/dL; Very Low Density Lipoprotein 11 mg/dL (5-40)
[2022-02-23 16:30] LABS: Anti-Thyroglobulin AB < 1.0 IU/mL (0.0-0.9); Thyroglobulin, Serum Qt. 0.1 ng/mL (1.5-38.5)
== END | disposition home or self-care (01) ==
LOC: MFPLAB 12:04
PROVIDERS: PCP Family Medicine; Referring Provider Family Medicine; Visit Provider Family Medicine
DX: Z85.850 Personal history of malignant neoplasm of thyroid (principal); I10 Essential (primary) hypertension; E78.5 Hyperlipidemia, unspecified; E03.9 Hypothyroidism, unspecified; M85.80 Other specified disorders of bone density and structure, unspecified site
CPT/HCPCS: 36415; 80053; 80061; 82306; 84432; 84439; 84443; 85025; 86800

== ENCOUNTER → 2022-03-19 | Outpatient (CLI) | payer MEDICARE, SELFPAY ==
[2022-03-19 18:16] LABS: T4 Free Direct 1.54 ng/dL (0.76-1.46)
== END | disposition home or self-care (01) ==
LOC: MFPLAB 16:02
PROVIDERS: PCP Family Medicine; Visit Provider Family Medicine
DX: E03.9 Hypothyroidism, unspecified (principal)
CPT/HCPCS: 36415; 84439

== ENCOUNTER → 2022-04-08 | Outpatient (CLI) | payer MEDICARE, SELFPAY ==
--- NOTE | 2022-04-08 15:21 | BI_ITS ---
MAMMOGRAPHY - BILATERAL SCREENING REASON FOR EXAM: Female, 71 years old. Routine annual screening examination. PERTINENT HISTORY: Non-contributory. TECHNIQUE: Digital bilateral breast dario (3D mammographic acquisition) in the CC and MLO projections. 2-D mediolateral oblique (MLO) and craniocaudad (CC) views of both breasts were obtained. CAD: Full Field Digital Mammography with Computer Added Detection was performed. COMPARISON: Comparison is made with prior study dated 09/07/2018. FINDINGS: Breast Composition: The breasts are heterogeneously dense, which may obscure small masses. There are no dominant masses or suspicious calcifications. No other significant abnormalities are identified. There has been no significant change since the prior study. BI/SCRN MAMM (CAD)W/DARIO BILAT IMPRESSION: Stable bilateral screening mammogram. Yearly follow-up mammogram recommended. (A) ASSESSMENT CATEGORY: BIRADS Category 1: Negative. A letter regarding these results will be sent to the patient by the facility within 30 days. Approximately 10% of breast cancers are not detected by mammography. A normal mammogram should not delay biopsy of a clinically suspicious abnormality. [id number] Electronically Signed: Javier Amaro MD at 8:15 EST ,
--- NOTE | 2022-04-08 15:28 | BD_ITS ---
STUDY: DUAL ENERGY X-RAY ABSORPTIOMETRY / DXA REASON FOR EXAM: Female, 71 years old. 733.00OsteoporosisBONE DENSITY REASON FOR EXAM TECHNIQUE: Bone Mineral Density (BMD) measurements of lumbar spine and bilateral hips were obtained. COMPARISON: Comparison is made with prior study 09/12/2018. FINDINGS: Lumbar Spine (L1-L4): g/cm2 (0.797) / T-score (-2.0) / Z-score (0.0) Findings are suggestive of osteopenia with a moderate fracture risk. Left Femur Total: g/cm2 (0.762) / T-score (-1.5) / Z-score (0.0) Left Femoral Neck: g/cm2 (0.680) / T-score (-1.5) / Z-score (0.3) Right Femur Total: g/cm2 (0.854) / T-score (-0.7) / Z-score (0.8) Right Femoral Neck: g/cm2 (0.7-1) / T-score (-1.2) / Z-score (0.6) The T-Scores on the most recent prior examination were: Lumbar Spine (L1-L4): There has been worsening of bone density since the previous examination. Left Femur Total: which represents a worsening of 6.7%. Right Femur Total: which represents a worsening of 3.7%. BD/Dexa Bone Density Study IMPRESSION: The patient is considered osteopenic as outlined below according to World Garcia Organization (WHO) criteria with a moderate fracture risk. There has been worsening of bone density since the previous examination. Reference Information: The T-score is the number of standard deviations above or below the standard which is normal for young adults at their peak bone mineral density. The World Health Organization (WHO) interprets the T-scores as follows: Above -1 Normal bone density Between -1 and -2.5 Osteopenia Equal to / or below -2.5 Osteoporosis As a practical clinical guideline, osteopenia may be graded as follows: Mild -1 through -1.5 Moderate -1.6 through -2.0 Severe -2.1 through -2.4 The Z-score is the number of standard deviations above or below age-matched controls. A Z-score of less than -1.5 would be considered abnormal. References: 1. NIH Osteoporosis and Related Bone Diseases www osteo.org 2. International Society for Clinical Densitometry www iscd.org 3. National Osteoporosis Foundation www nof.org Electronically Signed: Javier Amaro MD at 12:41 EST ,
== END | disposition home or self-care (01) ==
LOC: OPBD 15:18
PROVIDERS: PCP Family Medicine; Referring Provider Family Medicine; Visit Provider Family Medicine
DX: Z12.31 Encounter for screening mammogram for malignant neoplasm of breast (principal); M81.0 Age-related osteoporosis without current pathological fracture
CPT/HCPCS: 77063; 77067; 77080

== ENCOUNTER → 2022-09-17 | Outpatient (CLI) | payer MEDICARE, SELFPAY ==
[2022-09-17 10:15] LABS: Absolute Neutrophil Count 4.3 X10^3/uL (2.0-7.7); Basophil# 0.05 X10^3/uL; Basophil% 0.8 % (0-1); Eosinophils% 1.7 % (0-5); Lymphocyte % 15.3 % (19-41); Mean Corp Hgb Conc 33.3 g/dL (32-36); Mean Corpuscular Volume 90.1 fL (81-99); Mean Platelet Vol. 10.1 fl (6.2-12.0); Monocyte# 0.59 X10^3/uL; NRBC Flagged by Analyzer 0 % (0-5); Neutrophil # 4.25 X10^3/uL (2.7-7.7); Platelet Count 237 K/mm3 (150-450); RBC Distribution Width CV 13.7 % (11.6-14.6); RBC Distribution Width SD 45.1 fl (35.1-43.9); Red Blood Count 4.66 M/mm3 (4.2-5.4); White Blood Count 5.9 K/mm3 (4.4-11.0)
[2022-09-17 11:10] LABS: ALB/GLOB Ratio 1.3 RATIO (0.9-2.4); AST(SGOT) 11 U/L (15-37); Alanine Aminotransfer ALT/SGPT 20 U/L (13-56); Albumin, Serum 3.9 g/dL (3.2-5.0); Alkaline Phosphatase 49 U/L (45-117); Anion Gap 6 (5-15); BUN 19 mg/dL (7-18); BUN/Creat Ratio 26.3 RATIO (10-20); Calcium,Total 8.7 mg/dL (8.5-10.1); Chloride 111 mmol/L (98-107); Cholesterol 168 mg/dL (200); Creatinine, Serum 0.72 mg/dL (0.55-1.02); EST Glomerular Filtration Rate 85 mL/min (>60); Est Glom Filt Rate - Afr Amer 103 mL/min (>60); Globulin 2.9 g/dL (2.2-4.2); Glucose 100 mg/dL (74-106); High Density Lipoprotein 72 mg/dL; Potassium 3.4 mmol/L (3.5-5.1); Protein, Total 6.8 g/dL (6.4-8.2); Sodium Level 143 mmol/L (136-145); T4 Free Direct 1.52 ng/dL (0.76-1.46); Thyroid Stim Hormone (TSH) 0.03 uIU/mL (0.358-3.74); Triglycerides 60 mg/dL; Very Low Density Lipoprotein 12 mg/dL (5-40)
== END | disposition home or self-care (01) ==
LOC: MFPLAB 09:12
PROVIDERS: PCP Family Medicine; Visit Provider Family Medicine
DX: I10 Essential (primary) hypertension (principal); E03.9 Hypothyroidism, unspecified
CPT/HCPCS: 36415; 80053; 80061; 84439; 84443; 85025

== ENCOUNTER → 2023-04-04 | Outpatient (CLI) | payer MEDICARE, SELFPAY ==
[2023-04-04 18:18] LABS: T4 Total, Thyroxin 10.6 ug/dL (4.8-13.9); Thyroid Stim Hormone (TSH) 0.14 uIU/mL (0.358-3.74)
== END | disposition home or self-care (01) ==
LOC: MFPLAB 15:26
PROVIDERS: Nurse Practitioner Family; PCP Family Medicine; Visit Provider Family Medicine
DX: E03.9 Hypothyroidism, unspecified (principal)
CPT/HCPCS: 36415; 84436; 84443

== ENCOUNTER → 2023-04-11 | Outpatient (CLI) | payer MEDICARE, SELFPAY ==
--- NOTE | 2023-04-11 09:04 | BI_ITS ---
MAMMOGRAPHY - BILATERAL SCREENING REASON FOR EXAM: Female, 72 years old. Routine annual screening examination. PERTINENT HISTORY: Non-contributory. TECHNIQUE: Digital bilateral breast dario (3D mammographic acquisition) in the CC and MLO projections. 2-D mediolateral oblique (MLO) and craniocaudad (CC) views of both breasts were obtained. CAD: Full Field Digital Mammography with Computer Added Detection was performed. COMPARISON: Comparison is made with prior study dated April 08, 2022. FINDINGS: Breast Composition: The breasts are heterogeneously dense, which may obscure small masses. There are no dominant masses or suspicious calcifications. A tissue clip marker is seen in the anterior upper central portion of the right breast in keeping with prior biopsy. No other significant abnormalities are identified. There has been no significant change since the prior study. BI/SCRN MAMM (CAD)W/DARIO BILAT IMPRESSION: Stable bilateral screening mammogram. Yearly follow-up mammogram recommended. (A) ASSESSMENT CATEGORY: BIRADS Category 2: Benign. A letter regarding these results will be sent to the patient by the facility within 30 days. Approximately 10% of breast cancers are not detected by mammography. A normal mammogram should not delay biopsy of a clinically suspicious abnormality. [id number] Electronically Signed: Javier Amaro MD at 9:49 EST ,
== END | disposition home or self-care (01) ==
PROVIDERS: PCP Family Medicine; Referring Provider Nurse Practitioner Family; Visit Provider Nurse Practitioner Family
DX: Z12.31 Encounter for screening mammogram for malignant neoplasm of breast (principal)
CPT/HCPCS: 77063; 77067

== ENCOUNTER → 2024-04-12 | Outpatient (CLI) | payer MEDICARE, SELFPAY ==
[2024-04-12 12:45] LABS: Absolute Lymphocyte Count 1.11 X10^3/uL (0.83-4.51); Absolute Neutrophil Count 3.9 X10^3/uL (2.0-7.7); Basophil# 0.07 X10^3/uL; Basophil% 1.2 % (0-1); Eosinophil# 0.17 X10^3/uL; Eosinophils% 2.9 % (0-5); Hematocrit 43.4 % (37-47); Lymphocyte # 1.11 X10^3/ul (0.83-4.51); Mean Corp Hgb Conc 32.3 g/dL (32-36); Mean Corpuscular Hgb 28.8 pg (27.0-32.0); Mean Corpuscular Volume 89.3 fL (81-99); Monocyte% 10.3 % (0-10); NRBC Flagged by Analyzer 0 % (0-5); Neutrophil # 3.88 X10^3/uL (2.7-7.7); Neutrophil % 66.3 % (47-70); Platelet Count 249 K/mm3 (150-450); RBC Distribution Width CV 14.3 % (11.6-14.6); RBC Distribution Width SD 46.9 fl (35.1-43.9); Red Blood Count 4.86 M/mm3 (4.2-5.4); White Blood Count 5.9 K/mm3 (4.4-11.0)
[2024-04-12 13:04] LABS: ALB/GLOB Ratio 1.4 RATIO (0.9-2.4); AST(SGOT) 13 U/L (15-37); Alanine Aminotransfer ALT/SGPT 25 U/L (13-56); Albumin, Serum 4.1 g/dL (3.2-5.0); Alkaline Phosphatase 50 U/L (45-117); Anion Gap 6 (5-15); BUN 25 mg/dL (7-18); BUN/Creat Ratio 24.5 RATIO (10-20); Calcium,Total 9.2 mg/dL (8.5-10.1); Chloride 110 mmol/L (98-107); Cholesterol 171 mg/dL (200); Creatinine, Serum 1.02 mg/dL (0.55-1.02); EST Glomerular Filtration Rate 57 mL/min (>60); Est Glom Filt Rate - Afr Amer 69 mL/min (>60); Globulin 2.9 g/dL (2.2-4.2); Glucose 106 mg/dL (74-106); High Density Lipoprotein 67 mg/dL; Magnesium 2.6 mg/dL (1.6-2.6); Potassium 4.1 mmol/L (3.5-5.1); Sodium Level 142 mmol/L (136-145); T4 Free Direct 0.89 ng/dL (0.76-1.46); Triglycerides 80 mg/dL; Very Low Density Lipoprotein 16 mg/dL (5-40)
[2024-04-13 17:33] LABS: Hemoglobin A1c 5.6 % (3.8-5.6)
[2024-04-15 16:07] LABS: Anti-Thyroglobulin AB < 1.0 IU/mL (0.0-0.9); T3 Reverse 13.2 ng/dL (9.2-24.1); Thyroglobulin, Serum Qt. 0.6 ng/mL (1.5-38.5)
== END | disposition home or self-care (01) ==
LOC: MTLAB 09:59
PROVIDERS: PCP Family Medicine; Referring Provider Family Medicine; Visit Provider Family Medicine
DX: R73.09 Other abnormal glucose (principal); E03.9 Hypothyroidism, unspecified; I10 Essential (primary) hypertension; E78.5 Hyperlipidemia, unspecified; M85.80 Other specified disorders of bone density and structure, unspecified site; Z85.850 Personal history of malignant neoplasm of thyroid
CPT/HCPCS: 36415; 80053; 80061; 82306; 83036; 83735; 84432; 84439; 84443; 84481; 84482; 85025; 86800

== ENCOUNTER → 2024-05-31 | Outpatient (CLI) | payer MEDICARE, SELFPAY ==
[2024-05-31 12:35] LABS: Free T3 3.2 pg/mL (2.18-3.98)
[2024-06-05 23:07] LABS: T3 Reverse 18.7 ng/dL (9.2-24.1)
== END | disposition home or self-care (01) ==
LOC: MFPLAB 10:45
PROVIDERS: PCP Family Medicine; Referring Provider Family Medicine; Visit Provider Family Medicine
DX: E03.9 Hypothyroidism, unspecified (principal)
CPT/HCPCS: 36415; 84439; 84481; 84482

== ENCOUNTER → 2024-06-19 | Outpatient (CLI) | payer MEDICARE, SELFPAY ==
--- NOTE | 2024-06-19 15:04 | BI_ITS ---
EXAM: SCRN MAMM (CAD)W/DARIO BILAT 06/19/2024 CLINICAL HISTORY: F, Age 73 y/o , SCREENING TECHNIQUE: Bilateral screening digital breast tomosynthesis with 2D and 3D images. Computer aided detection. COMPARISON: Prior exam(s) dated 04/11/2023, 04/08/2022. FINDINGS: TISSUE DENSITY: The breast tissue is heterogenously dense, which may obscure small masses. The mammogram demonstrates that the patient has dense breasts. Supplemental screening with whole breast ultrasound or MRI may be considered for further evaluation.. Bilateral Breast Mammographic Findings: No significant masses, calcifications or other abnormalities are identified. BI/SCRN MAMM (CAD)W/DARIO BILAT IMPRESSION: Right Breast: BIRADS 1 NEGATIVE. Left Breast: BIRADS 1 NEGATIVE. OVERALL FINAL ASSESSMENT: BIRADS 1 NEGATIVE. RECOMMENDATION: Routine annual follow-up in 1 Year A letter with findings and recommendations will be mailed to the patient. Reading Location: [id number]
--- NOTE | 2024-06-19 15:16 | BD_ITS ---
PROCEDURE: DEXA BONE DENSITY STUDY 06/19/2024 REASON FOR EXAM: None provided. TECHNIQUE: DXA scan of the lumbar spine and bilateral hips, using Hologic Horizon W. REFERENCE LINKS: ISCD Adult Positions COMPARISON: Measurements obtained 04/08/2022 are available for comparison purposes but the images themselves are not available for review. FINDINGS: LUMBAR SPINE: Bone mineral denisty, L1-L3: 0.853 g/cm??? T-score: -1.5 LEFT FEMORAL NECK: Bone mineral denisty: 0.671 g/cm??? T-score: -1.6 LEFT TOTAL HIP: Bone mineral denisty: 0.771 g/cm??? T-score: -1.4 RIGHT FEMORAL NECK: Bone mineral denisty: 0.741 g/cm??? T-score: -1.0 RIGHT TOTAL HIP: Bone mineral denisty: 0.836 g/cm??? T-score: -0.9 FRAX*: 10 Year Probability of Fracture: Major Osteoporotic Fracture(1): 16.0% Hip Fracture(2): 2.5% *FRAX is a trademark of the [employer]'s [employer] for Metabolic Bone Disease, World Health Organization (WHO) Collaborating [employer]. 1-Major Osteoporotic Fracture: Clinical Spine, Forearm, Hip or Shoulder. 2-The 10-year probability of fracture may be lower than reported if the patient has received treatment. The National Osteoporosis Foundation recommends that medical therapy be considered in postmenopausal women and men, age 50 and older, with a: * hip or vertebral fracture * T-score less than or equal to -2.5 in the spine or hip * T-score between -1.0 and -2.5 and FRAX equal to or less than 3 percent for hip fracture or equal to or less than 20 percent for major osteoporotic fracture. World Health Organization criteria for BMD interpretation classify patients as Normal (T-score at or above -1.0), Osteopenic (T-score between -1.0 and -2.5), or Osteoporotic (T-score at or below -2.5). BD/Dexa Bone Density Study IMPRESSION: 1. Osteopenia. 2. Since 04/08/2022, there has been a decrease of 7.1% in the bone mineral dens ity of the lumbar spine. 3. Additional description as above. Reading Location: [id number]
== END | disposition home or self-care (01) ==
PROVIDERS: PCP Family Medicine; Referring Provider Family Medicine; Visit Provider Family Medicine
DX: Z12.31 Encounter for screening mammogram for malignant neoplasm of breast (principal); M85.89 Other specified disorders of bone density and structure, multiple sites
CPT/HCPCS: 77063; 77067; 77080

== ENCOUNTER → 2024-10-12 | Outpatient (CLI) | payer MEDICARE, SELFPAY ==
[2024-10-12 09:02] LABS: Mucous, Urine 0 SEEN /hpf (<or=2+); Red Blood Cells-Urine 0 SEEN /hpf (0-5); Squamous Epithelial Cells - UA 0 SEEN /hpf (5-10)
[2024-10-12 10:23] LABS: Color, Urine Yellow (Yellow); Glucose, Dipstick Normal (Normal); Ketone-Dipstick Negative (Negative); Leukocyte Esterase-Dipstick Negative /ul (Negative); Nitrite-Dipstick Negative (Negative); Occult Blood-Urine Negative /ul (Negative); Protein-Dipstick Negative (Negative); Specific Gravity, Urine 1.010 (1.002-1.030); Urine Bilirubin Dipstick Negative (Negative)
[2024-10-12 10:27] LABS: Hematocrit 40.3 % (37-47); Hemoglobin 13.3 g/dL (12.0-15.0); Immature Granulocytes Count 0.010 X10^3/uL (0.0-0.0); Mean Corp Hgb Conc 33.0 g/dL (32-36); Mean Corpuscular Volume 87.0 fL (81-99); Mean Platelet Vol. 9.6 fl (6.2-12.0); NRBC Flagged by Analyzer 0 % (0-5); Platelet Count 235 K/mm3 (150-450); RBC Distribution Width CV 13.7 % (11.6-14.6); RBC Distribution Width SD 43.8 fl (35.1-43.9); Red Blood Count 4.63 M/mm3 (4.2-5.4); White Blood Count 5.0 K/mm3 (4.4-11.0)
[2024-10-12 11:41] LABS: AST(SGOT) 17 U/L (<=31); Alanine Aminotransfer ALT/SGPT 26 U/L (<=34); Albumin, Serum 4.0 g/dL (3.4-4.8); Alkaline Phosphatase 61 U/L (35-104); Anion Gap 11 (5-15); BUN 20 mg/dL (4-19); BUN/Creat Ratio 27.9 RATIO (10-20); Calcium,Total 9.2 mg/dL (7.6-11.0); Carbon Dioxide 23.3 mmol/L (21.0-32.0); Chloride 108 mmol/L (98-108); Cholesterol 170 mg/dL (<=200); Globulin 2.1 g/dL (2.2-4.2); Glucose 94 mg/dL (70-99); Low Density Lipoprotein Calc. 92 mg/dL; Magnesium 2.3 mg/dL (1.5-2.2); Potassium 4.2 mmol/L (3.3-5.1); Triglycerides 76 mg/dL; Very Low Density Lipoprotein 15 mg/dL (5-40); cholesterol:hdl ratio screen 2.69
== END | disposition home or self-care (01) ==
LOC: MFPLAB 08:59
PROVIDERS: PCP Family Medicine; Visit Provider Family Medicine
DX: E03.9 Hypothyroidism, unspecified (principal); I10 Essential (primary) hypertension; R73.09 Other abnormal glucose
CPT/HCPCS: 80053; 80061; 81001; 83036; 83735; 84439; 84443; 85025